=== PATIENT | male | born 1985 | race Caucasian/White ===

== ENCOUNTER 2024-03-01 09:17 | Outpatient (REF) | payer SELFPAY ==
[2024-03-01 13:06] LABS: Alanine Aminotransferase 14 U/L (0-40); Albumin Level 4.6 g/dL (3.5-5.0); Alkaline Phosphatase 91 U/L (39-117); Aspartate Amino Transferase 16 U/L (5-37); Bilirubin Direct < 0.2 mg/dL (0.0-0.5); Bilirubin Total 0.2 mg/dL (0.0-1.0); Total Protein 7.9 g/dL (6.5-8.0)
== END 2024-03-01 09:18 | disposition home or self-care (01) ==
LOC: HO.HHCL 09:17
PROVIDERS: Visit Provider Emergency Medicine
DX: F10.21 Alcohol dependence, in remission (principal)
CPT/HCPCS: 36415; 80076